=== PATIENT | female | born 1980 | race Caucasian/White ===

== ENCOUNTER 2017-11-06 19:21 | Emergency (ER) | payer MEDICAID ==
[2017-09-08 05:48] VITALS: Ht 158.8 cm; Wt 99.8 kg
[~2017-11-06] VITALS: Ht 158.8 cm; Wt 99.8 kg
[~2017-11-06 19:21] MED LIST: ACE3 PO; ACET-1966 PO; ALB18R INH; ASPI81TA94 PO; CALC-1015 PO; IBU800 PO; IBUP800T37 PO; INSU100V26 SC; INSU100V26 SQ; LEVI SUBQ; NO RTN MEDS; NORG1TAB5 PO; NOVOLINRPT IJ; NPH,100V12 SQ; NPH,100V2 SUBQ; ONDA4TAB97 PO; OXYC-865 PO; PANT40SU3 PO; PER PO; PRED20TA6 PO; PREN-127 PO; PROM5SYR PO
[2017-11-06] MEDS ORDERED: KETOROLAC 15 MG/ML VIAL IVP ONE (19:40)
[2017-11-06] MEDS ORDERED: ONDANSETRON 4 MG/2 ML VIAL IVP ONE (19:40)
--- NOTE | 2017-11-06 19:44 | ER Report ---
History and Physical Time Seen By MD: 19:35 Hx. of Stated Complaint: POSSIBLE KIDNEY STONE. PAIN IN LOWER LEFT FLANK THAT IS RADIATING ANTERIORLY FOR 4 HOURS NOW. HPI/ROS CHIEF COMPLAINT: Left flank pain HISTORY OF PRESENT ILLNESS: This is a 37-year-old female who presents to the emergency department with left flank pain. Patient states that 4:00 this afternoon she had a sudden onset of left flank pain. She has also had nausea no vomiting since. Patient states that the pain migrates from the left flank into the left side and left groin area. Patient also states that she does have some UTI symptoms that began yesterday, such as urinary frequency and pressure. Patient is 8 weeks post , no complications. Patient denies fevers, chills, shortness of breath, chest pain or shortness of breath. Denies headaches or visual changes. REVIEW OF SYSTEMS: Constitutional: No fever, no chills. Eyes: No discharge. ENT: No sore throat. Cardiovascular: No chest pain, no palpitations. Respiratory: No cough, no shortness of breath. Gastrointestinal: No abdominal pain, no vomiting. Genitourinary: As above. Musculoskeletal: As above. Skin: No rashes. Neurological: No headache. Allergies: Coded Allergies: adhesive tape (Verified Allergy, Severe, RASH, 11/06/17) states blisters from tape latex (Verified Allergy, Intermediate, RASH, 11/06/17) Home Meds Reported Medications Vits W-Ca,Fe,Fa(<1MG) ( VITAMINS) 1 Each Tablet, 1 EACH PO DAILY, TAB 02/09/17 Discontinued Reported Medications Calcium Carbonate (CALCIUM CARBONATE) 400 Mg Tab.chew, 400 MG PO, TAB.CHEW 09/08/17 Discontinued Scripts Oxycodone Hcl/Acetaminophen (PERCOCET 5-325 MG TABLET) 1 Each Tablet, 1-2 TAB PO Q4H Y for pain, #40 TAB 0 Refills Prov:PATRICIA MCNAIR MD 09/10/17 Ibuprofen (IBUPROFEN) 800 Mg Tablet, 1 TAB PO Q8H Y for pain, #40 TAB 0 Refills TAKE WITH FOOD EVERY 8 HOURS Prov:PATRICIA MCNAIR MD 09/10/17 Past Medical/Surgical History She hasn't has a past medical and surgical history history of hepatitis C, D&C, wears glasses and contacts, type II diabetes, ectopic , gallbladder disease, cholecystectomy, . Reviewed Nurses Notes: Yes Hx Smoking: Yes Smoking Status: Current: Every Day Smoker Exposure to Second Hand Smoke?: Yes Hx Substance Use Disorder: Yes (past) Hx Alcohol Use: Yes Constitutional Vital Sign - Last 24 Hours 11/06/17 11/06/17 11/06/17 11/06/17 19:27 19:29 19:36 19:51 Temp 98.8 Pulse 99 102 95 Resp 20 B/P (MAP) 141/103 (116) 141/103 Pulse Ox 90 94 96 O2 Delivery Room Air 11/06/17 21:12 Pulse 85 Resp 16 B/P (MAP) 128/77 (94) Pulse Ox 95 O2 Delivery Room Air Physical Exam General Appearance: The patient is alert, has no immediate need for airway protection and no signs of toxicity. Eyes: Pupils equal and round no pallor or injection. ENT, Mouth: Mucous membranes are moist. Respiratory: There are no retractions, lungs are clear to auscultation. Cardiovascular: Regular rate and rhythm, no murmurs, clicks or rubs. Gastrointestinal: Abdomen is round and soft, tender to the left abdomen with deep palpation, no masses, bowel sounds normal. Neurological: Alert and oriented 4. Moving all extremities. Following all commands. No focal neuro deficits. Skin: Warm and dry, no rashes. Musculoskeletal: Neck is supple non tender. Left sided CVA tenderness. Extremities are nontender, nonswollen and have full range of motion. DIFFERENTIAL DIAGNOSIS: After history and physical exam differential diagnosis was considered for abdominal pain including but not limited to appendicitis, cholecystitis, gastritis and urinary tract infection, kidney stone, post surgical complication. Medical Decision Making Data Points Result Diagram: 11/06/17194111/06/171941 Laboratory Hematology Test 11/06/17 19:26 11/06/17 19:42 Urine Color Straw Urine Clarity Clear Urine pH 6.0 pH (4.8-9.5) Urine Specific [place] 1.017 Urine Protein Negative mg/dL (NEGATIVE) Urine Glucose (UA) 500 mg/dL (NEGATIVE) Urine Ketones Negative mg/dL (NEGATIVE) Urine Blood Moderate (NEGATIVE) Urine Nitrite Negative (NEGATIVE) Urine Bilirubin Negative (NEGATIVE) Urine Urobilinogen Negative mg/dL (0.2-1.9) Urine Leukocyte Esterase Trace (NEGATIVE) Urine RBC 11 /HPF (0-2/HPF) Urine WBC 12 /HPF (0-5/HPF) Urine Squamous Epithelial Cells Few /LPF (</=FEW) Urine Bacteria Negative /HPF (NONE-FEW) Urine Mucus None /HPF (NONE-FEW) Red Blood Count 5.04 M/uL (4.17-5.56) Mean Corpuscular Volume 84.6 fL (80.0-96.0) Mean Corpuscular Hemoglobin 28.4 pg (26.0-33.0) Mean Corpuscular Hemoglobin Concent 33.6 g/dL (32.0-36.0) Red Cell Distribution Width 14.4 % (11.5-14.5) Mean Platelet Volume 8.3 fL (7.2-11.1) Neutrophils (%) (Auto) 69.1 % (39.4-72.5) Lymphocytes (%) (Auto) 22.1 % (17.6-49.6) Monocytes (%) (Auto) 7.2 % (4.1-12.4) Eosinophils (%) (Auto) 0.6 % (0.4-6.7) Basophils (%) (Auto) 1.0 % (0.3-1.4) Nucleated RBC Relative Count (auto) 0.0 /100WBC Neutrophils # (Auto) 9.4 K/uL (2.0-7.4) Lymphocytes # (Auto) 3.0 K/uL (1.3-3.6) Monocytes # (Auto) 1.0 K/uL (0.3-1.0) Eosinophils # (Auto) 0.1 K/uL (0.0-0.5) Basophils # (Auto) 0.1 K/uL (0.0-0.1) Nucleated RBC Absolute Count (auto) 0.00 K/uL Sodium Level 134 mmol/L (137-145) Potassium Level 3.9 mmol/L (3.5-5.0) Chloride Level 98 mmol/L (98-107) Carbon Dioxide Level 22 mmol/L (22-31) Blood Urea Nitrogen 12 mg/dl (7-18) Creatinine 0.70 mg/dl (0.52-1.04) Glomerular Filtration Rate Calc > 60.0 Random Glucose 433 mg/dl (75-110) Calcium Level 9.5 mg/dl (8.4-10.2) Total Bilirubin 0.4 mg/dl (0.2-1.3) Aspartate Amino Transf (AST/SGOT) 17 U/L (0-35) Alanine Aminotransferase (ALT/SGPT) 28 U/L (0-56) Alkaline Phosphatase 202 U/L (0-126) Total Protein 8.2 gm/dl (6.3-8.2) Albumin 3.9 g/dl (3.5-5.0) Chemistry Test 11/06/17 19:26 11/06/17 19:42 Urine Color Straw Urine Clarity Clear Urine pH 6.0 pH (4.8-9.5) Urine Specific [place] 1.017 Urine Protein Negative mg/dL (NEGATIVE) Urine Glucose (UA) 500 mg/dL (NEGATIVE) Urine Ketones Negative mg/dL (NEGATIVE) Urine Blood Moderate (NEGATIVE) Urine Nitrite Negative (NEGATIVE) Urine Bilirubin Negative (NEGATIVE) Urine Urobilinogen Negative mg/dL (0.2-1.9) Urine Leukocyte Esterase Trace (NEGATIVE) Urine RBC 11 /HPF (0-2/HPF) Urine WBC 12 /HPF (0-5/HPF) Urine Squamous Epithelial Cells Few /LPF (</=FEW) Urine Bacteria Negative /HPF (NONE-FEW) Urine Mucus None /HPF (NONE-FEW) White Blood Count 13.7 k/uL (4.5-11.0) Red Blood Count 5.04 M/uL (4.17-5.56) Hemoglobin 14.3 g/dL (12.0-16.0) Hematocrit 42.6 % (34.0-47.0) Mean Corpuscular Volume 84.6 fL (80.0-96.0) Mean Corpuscular Hemoglobin 28.4 pg (26.0-33.0) Mean Corpuscular Hemoglobin Concent 33.6 g/dL (32.0-36.0) Red Cell Distribution Width 14.4 % (11.5-14.5) Platelet Count 348 K/uL (150-450) Mean Platelet Volume 8.3 fL (7.2-11.1) Neutrophils (%) (Auto) 69.1 % (39.4-72.5) Lymphocytes (%) (Auto) 22.1 % (17.6-49.6) Monocytes (%) (Auto) 7.2 % (4.1-12.4) Eosinophils (%) (Auto) 0.6 % (0.4-6.7) Basophils (%) (Auto) 1.0 % (0.3-1.4) Nucleated RBC Relative Count (auto) 0.0 /100WBC Neutrophils # (Auto) 9.4 K/uL (2.0-7.4) Lymphocytes # (Auto) 3.0 K/uL (1.3-3.6) Monocytes # (Auto) 1.0 K/uL (0.3-1.0) Eosinophils # (Auto) 0.1 K/uL (0.0-0.5) Basophils # (Auto) 0.1 K/uL (0.0-0.1) Nucleated RBC Absolute Count (auto) 0.00 K/uL Glomerular Filtration Rate Calc > 60.0 Calcium Level 9.5 mg/dl (8.4-10.2) Total Bilirubin 0.4 mg/dl (0.2-1.3) Aspartate Amino Transf (AST/SGOT) 17 U/L (0-35) Alanine Aminotransferase (ALT/SGPT) 28 U/L (0-56) Alkaline Phosphatase 202 U/L (0-126) Total Protein 8.2 gm/dl (6.3-8.2) Albumin 3.9 g/dl (3.5-5.0) Urinalysis Test 11/06/17 19:26 Urine Color Straw Urine Clarity Clear Urine pH 6.0 pH (4.8-9.5) Urine Specific [place] 1.017 Urine Protein Negative mg/dL (NEGATIVE) Urine Glucose (UA) 500 mg/dL (NEGATIVE) Urine Ketones Negative mg/dL (NEGATIVE) Urine Blood Moderate (NEGATIVE) Urine Nitrite Negative (NEGATIVE) Urine Bilirubin Negative (NEGATIVE) Urine Urobilinogen Negative mg/dL (0.2-1.9) Urine Leukocyte Esterase Trace (NEGATIVE) Urine RBC 11 /HPF (0-2/HPF) Urine WBC 12 /HPF (0-5/HPF) Urine Squamous Epithelial Cells Few /LPF (</=FEW) Urine Bacteria Negative /HPF (NONE-FEW) Urine Mucus None /HPF (NONE-FEW) EKG/Imaging Imaging PATIENT NAME: Vi Cedeno : 1980 MR: [id number] V: [id number] EXAM DATE: ORDERING PHYSICIAN: FLORENCIA CHEATHAM TECHNOLOGIST: Location: [facility] Patient: Vi Cedeno : 1980 Visit/Account:[id number] Date of Sevice: 11/06/2017 ABDOMEN/PELVIS WITH CONTRAST HISTORY: Flank pain. TECHNIQUE: Axial images were obtained through the abdomen and pelvis with intravenous contrast . One of the following dose optimization techniques was utilized in the performance of this exam: automated exposure control; adjustment of the mA and/or kv according to patient size; or use of iterative reconstruction technique. Specific details can be referenced in the facility's radiology CT exam operational policy. CONTRAST: 75 cc of Isovue-370 COMPARISON: CT abdomen/pelvis 05/01/2009 FINDINGS: Visualized lung bases: Negative. Hepatobiliary: Cholecystectomy. Spleen: Negative. Adrenals: Negative. Pancreas: Negative. Kidneys/ureters/bladder: 2 mm nonobstructing right lower pole renal calculus. No ureteral calculus or hydronephrosis. Mild enhancement of the bilateral ureters, left greater than right. Mild enhancement of the urinary bladder wall. Bowel/peritoneum/mesentery: Negative. Vessels: Negative. Lymph nodes: Negative. Pelvic genitourinary: Negative. Bones/body wall: Negative. Other findings: None significant IMPRESSION: 1. 2 mm nonobstructing right lower pole renal calculus. No ureteral calculus or hydronephrosis. 2. Mild enhancement of the urinary bladder wall as well as bilateral ureters which can be seen with urinary tract infection. No specific CT findings to indicate pyelonephritis or abscess. Report Dictated By: Kaleb Nix MD at 11/06/2017 8:44 PM Report E-Signed By: Kaleb Nix MD at 11/06/2017 8:50 PM WSN:[id number] ED Course/Re-evaluation Clinical Indication for ER IV: Hydration, IV Access ED Course Patient was admitted to room. A history and physical were obtained. Differential diagnoses were considered. An IV was started. A CBC, CMP and UA were obtained. Laboratory that is showing a WBC of 13.7. Blood sugar of 433, and an alkaline phosphatase of 202. UA showing Urine glucose 500, moderate blood , leukocyte esterase, urine WBCs 12, small epithelials. The patient was also symptomatic for urinary tract infection. I did review these labs studies with the patient specifically the blood sugar of 433, the patient did say that she is aware that her blood sugars have been high and she is not been managing them away she should be at home. I did explain to her that she needs to follow up with her primary care provider regarding the blood sugars, patient expressed understanding. I did tell the patient to avoid breast-feeding for the next 24 hours after the IV contrast. A CT of the abdomen and pelvis showing a 2 mm renal calculi on the right side, as well as a urinary tract infection. Patient was given 15 mg IV, 4 mg IV Zofran, a 1 L normal saline bolus. Patient was also given 1 dose of Macrobid in the ED. A prescription for Macrobid was sent to the patient's pharmacy. I did tell the patient she needs to follow-up with her primary care provider this week The patient and her mother had no other questions or concerns at this time and she was discharged home. She is pain- free at this time, no nausea. Decision to Disposition Date: Nov 06, 2017 Decision to Disposition Time: 21:05 Depart Departure Latest Vital Signs Vital Signs Date Time Temp Pulse Resp B/P (MAP) Pulse Ox O2 Delivery O2 Flow Rate FiO2 11/06/17 21:12 85 16 128/77 (94) 95 Room Air 11/06/17 19:29 98.8 Impression: Primary Impression: UTI (urinary tract infection) Additional Impressions: Renal calculi Hyperglycemia Condition: Improved Disposition: HOME OR SELF-CARE New Scripts Nitrofurantoin Monohyd/M-Cryst (MACROBID 100 MG CAPSULE) 100 Mg Capsule 100 MG PO BID, #9 CAPSULE Prov: PORFIRIOLUIS MFLORENCIA BANK VAULT ATTENDANT-BC 11/06/17 Patient Instructions: Kidney Stones (ED), Urinary Tract Infection in Women (ED) Additional Instructions: Drink plenty of fluids. Get plenty of rest. No breast-feeding for the next 24 hours. Take the antibiotic as indicated. You can take ibuprofen or Tylenol for your pain and discomfort, both are okay with breast feeding. Please monitor your blood sugars. Follow-up in 3-5 days with your primary care provider regarding the symptoms get been having as well as your blood sugars. May return to the emergency department for any other concerns or worsening symptoms. Problem Qualifiers Primary Impression: UTI (urinary tract infection) Urinary tract infection type: acute cystitis Hematuria presence: with hematuria Qualified Codes: N30.01 - Acute cystitis with hematuria FLORENCIA CHEATHAM-PAMELLA Nov 06, 2017 19:44
[2017-11-06] MEDS ORDERED: NS(*) 0.9% 1000 ML BAG 1,000 ML IV ONE (19:45)
[2017-11-06 19:48] LABS: PLATELET COUNT, AUTOMATED 348 K/uL (150-450)
[2017-11-06] MEDS ORDERED: IOPAMIDOL 76% 75 ML INFUS BTL 75 ML ONE (19:51)
[2017-11-06] MEDS ORDERED: NS 0.9% 20 ML SDV 60 ML ONE (19:52)
--- NOTE | 2017-11-06 20:55 | RADIOLOGY IMAGING REPORT ---
FACILITY: [facility] PATIENT NAME: Vi Cedeno : 1980 MR: [id number] V: [id number] EXAM DATE: ORDERING PHYSICIAN: FLORENCIA CHEATHAM TECHNOLOGIST: Location: [facility] [place] Patient: Vi Cedeno : 1980 Visit/Account:[id number] Date of Sevice: 11/06/2017 ABDOMEN/PELVIS WITH CONTRAST HISTORY: Flank pain. TECHNIQUE: Axial images were obtained through the abdomen and pelvis with intravenous contrast . One of the following dose optimization techniques was utilized in the performance of this exam: automate d exposure control; adjustment of the mA and/or kv according to patient size; or use of iterative rec onstruction technique. Specific details can be referenced in the facility's radiology CT exam operati onal policy. CONTRAST: 75 cc of Isovue-370 COMPARISON: CT abdomen/pelvis 05/01/2009 FINDINGS: Visualized lung bases: Negative. Hepatobiliary: Cholecystectomy. Spleen: Negative. Adrenals: Negative. Pancreas: Negative. Kidneys/ureters/bladder: 2 mm nonobstructing right lower pole renal calculus. No ureteral calculus o r hydronephrosis. Mild enhancement of the bilateral ureters, left greater than right. Mild enhancemen t of the urinary bladder wall. Bowel/peritoneum/mesentery: Negative. Vessels: Negative. Lymph nodes: Negative. Pelvic genitourinary: Negative. Bones/body wall: Negative. Other findings: None significant IMPRESSION: 1. 2 mm nonobstructing right lower pole renal calculus. No ureteral calculus or hydronephrosis. 2. Mild enhancement of the urinary bladder wall as well as bilateral ureters which can be seen with u rinary tract infection. No specific CT findings to indicate pyelonephritis or abscess. Report Dictated By: Kaleb Nix MD at 11/06/2017 8:44 PM Report E-Signed By: Kaleb Nix MD at 11/06/2017 8:50 PM WSN:[id number]
[2017-11-06] MEDS ORDERED: NITROFURANTOIN MONO 100 MG PO ONE (21:00)
[2017-11-06] MEDS ORDERED: NITROFURANTOIN MONO 100 MG ONE (21:06)
[2017-11-06 21:12] VITALS: BP 128/77
[2017-11-06] MEDS ORDERED: NITR-105 PO (21:15)
== END 2017-11-06 21:25 | disposition home or self-care (01) ==
LOC: ER 19:31
DX: N30.01 Acute cystitis with hematuria (principal); N20.0 Calculus of kidney; E11.65 Type 2 diabetes mellitus with hyperglycemia
CPT/HCPCS: 74177; 81001; 85025; 96361; 96374; 96375; 99284; J1885; J2405; J7030; J7050; Q9967; 82040; 82247; 82310; 82374; 82435; 82565; 82947; 84075; 84132; 84155; 84295; 84450; 84460; 84520